=== PATIENT | female | born 1985 | race Two or more races ===

== ENCOUNTER 2021-03-19 19:19 | Emergency (ER) | payer SELFPAY ==
[~2021-03-19] VITALS: Ht 157.5 cm; Wt 60.0 kg
[2021-03-19 23:23] VITALS: BP 139/93
--- NOTE | 2021-03-19 23:25 | PHYS DOC ---
General Adult EDM: Chief Complaint: BACK PAIN - NO INJURY HPI: HPI: Patient is a 35 year old female no significant medical history who presents the ED today complaining of 7 out of 10 left low back pain radiating to the left lower extremity, patient states symptoms began a week ago. Patient describes t he pain as sharp and intermittent worse on activities specifically at work. 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 She states she has seen the chiropractor 3 times in the last 1 week with no improvement. She states she has tried Aleve and ibuprofen with no improvement. Patient denies any injuries. She states she would like a note to be excused from work. Patient denies any loss of bowel/bladder function. Denies any numbness or tingling to bilateral lower extremities. (JACQUE COOL APRN) Review of Systems: Review of Systems: Constitutional: Denies fever or chills. [] GI: Denies abdominal pain, nausea, vomiting, bloody stools or diarrhea. [] : Denies dysuria. [] Musculoskeletal: Reports low back pain radiating to the lower extremity Integument: Denies rash. [] Neurologic: Denies headache, focal weakness or sensory changes. [] Psychiatric: Denies depression or anxiety. [] (JACQUE COOL APRN) Heart Score: C/O Chest Pain: N/A Risk Factors: Risk Factors: DM, Current or recent (<one month) smoker, HTN, HLP, family history of CAD, obesity. Risk Scores: Score 0 - 3: 2.5% MACE over next 6 weeks - Discharge Home Score 4 - 6: 20.3% MACE over next 6 weeks - Admit for Clinical Observation Score 7 - 10: 72.7% MACE over next 6 weeks - Early Invasive Strategies (JACQUE COOL APRN) Allergies: Allergies: Allergies Coded Allergies Type Severity Reaction Last Updated Verified No Known Drug Allergies 03/01/14 No (JACQUE COOL APRN) Physical Exam: PE: Constitutional: Well developed, well nourished, no acute distress, non-toxic appearance. [] Abdomen: Bowel sounds normal, soft, no tenderness, no masses, no pulsatile masses. [] Skin: Warm, dry, no erythema, no rash. [] Back: Tenderness on palpation of the left SI joint, no midline lumbar spine tenderness, no CVA tenderness. Positive straight leg raise to the left at roughly 40 degrees. Extremities: No tenderness, no cyanosis, no clubbing, ROM intact, no edema. [] Neurologic: Alert and oriented X 3, normal motor function, normal sensory function, no focal deficits noted. [] Psychologic: Affect normal, judgement normal, mood normal. [] (JACQUE COOL APRN) EKG: EKG: [] (JACQUE COOL APRN) Radiology/Procedures: Radiology/Procedures: [] (JACQUE COOL APRN) Course & Med Decision Making: Course & Med Decision Making Pertinent Labs and Imaging studies reviewed. (See chart for details) This is a 35-year-old female patient presented to the ED today with left low back pain with sciatica. No known injury, no cauda equina syndrome symptoms. Discharge in Flexeril, diclofenac and gabapentin. Follow-up with PCP in a week (JACQUE COOL APRN) Course & Med Decision Making I have participated in the care of this patient and I have reviewed and agree with all pertinent clinical information above including history, exam, and rec ommendations. Yandel Dubois DO (YANDEL DUBOIS DO) Nakul Disclaimer: Nakul Disclaimer: This electronic medical record was generated, in whole or in part, using a voice recognition dictation system. (JACQUE COOL APRN) Departure Departure Impression: Primary Impression: Sciatica, left side Additional Impression: Low back pain Qualified Codes: M54.42 - Lumbago with sciatica, left side Disposition: HOME / SELF CARE / HOMELESS Condition: STABLE Referrals: NO PCP (PCP) Follow-up with your primary care doctor in 1 to 2 weeks Patient Instructions: Sciatica with [facility] Additional Instructions: Try using a heating pad on your low back. Take the prescribed medications as ordered. Follow-up with your doctor in 1 week Scripts Gabapentin (GABAPENTIN ) 100 Mg Capsule 100 MG PO TID for NEUROGENIC PAIN, #30 CAP Prov: JACQUE COOL APRN 03/19/21 Diclofenac Potassium (DICLOFENAC POTASSIUM) 50 Mg Tablet 1 TAB PO BID, #20 TAB 0 Refills Prov: JACQUE COOL APRN 03/19/21 Cyclobenzaprine Hcl (CYCLOBENZAPRINE HCL) 10 Mg Tablet 1 TAB PO TID, #30 TAB Prov: JACQUE COOL APRN 03/19/21 JACQUE COOL APRN Mar 19, 2021 23:25 YANDEL DUBOIS Mar 20, 2021 00:43
[2021-03-19] MEDS ORDERED: HYDROcodone/APAP 5/325MG 1 TAB TABLET PO ONE (23:30)
[2021-03-19] MEDS ORDERED: CYCLOBENZAPRINE 10 MG TABLET. PO ONE (23:30)
[2021-03-19] MEDS ORDERED: CYCL10TA2 PO (23:56)
[2021-03-19] MEDS ORDERED: DICL50TA2 PO (23:56)
[2021-03-19] MEDS ORDERED: GABA-585 PO (23:56)
== END 2021-03-20 00:11 | disposition home or self-care (01) ==
LOC: ER 19:19
DX: M54.42 Lumbago with sciatica, left side (principal)
CPT/HCPCS: 99283